=== PATIENT | male | born 1975 | race Caucasian/White ===

== ENCOUNTER 2019-03-02 09:45 | Inpatient (IN) ==
[~2019-03-02 09:45] MED LIST: HEPARIN/NACL 0.9% 2 UNITS/ML 1,000 ML IV ONE; LIDOCAINE 1%/EPI INJ 20 ML VIAL ONE; MIDAZOLAM 2 MG/2 ML VIAL ONE; fentaNYL 100 MCG/2 ML VIAL ONE
[2019-03-02] MEDS ORDERED: TIROFIBAN 5,000 MCG/100 ML PREMIX IV ONE (10:21)
[2019-03-02] MEDS ORDERED: HEPARIN 5,000 UNIT/1 ML VIAL ONE (10:21)
[2019-03-02] MEDS ORDERED: TICAGRELOR 90 MG TABLET ONE (10:26)
[2019-03-02] MEDS ORDERED: TIROFIBAN 5,000 MCG/100 ML PREMIX IV SCH (10:28)
[2019-03-02] MEDS ORDERED: ACETAMINOPHEN 325 MG TABLET PO PRN (11:03)
[2019-03-02] MEDS ORDERED: NITROGLYCERIN SL 0.4 MG TABLET SL PRN (11:03)
[2019-03-02] MEDS ORDERED: MORPHINE 4 MG/1 ML VIAL IV PRN (11:03)
[2019-03-02] MEDS ORDERED: ZALEPLON 5 MG CAPSULE PO PRN (11:03)
[2019-03-02] MEDS ORDERED: DEXTROSE 5% NACL 0.45% 1,000 ML IV SCH (11:30)
[2019-03-02] MEDS: TICAGRELOR 90 MG TABLET PO SCH (20:30)
[2019-03-02] MEDS: ATORVASTATIN 80 MG TABLET PO SCH (20:30)
[2019-03-02] MEDS: METOPROLOL TARTRATE 25 MG TABLET PO SCH (20:30)
[2019-03-03 04:01] LABS: Basophils # 0.1 10*3/uL (0.0-0.2); Basophils % 0.6 % (0.0-0.8); Eosinophils # 0.4 10*3/uL (0.0-0.87); Eosinophils % 3.9 % (0.00-10.9); Hematocrit 46.9 VOL% (42.0-52.0); Hemoglobin 15.9 GM/DL (14.0-18.0); Immature Granulocytes % 0.2 %; Immature Granulocytes Absolute 0.02 #; Lymphocytes # 1.8 10*3/uL (1.4-4.0); Lymphocytes % 19.7 % (21.2-54.2); Mean Corpuscular HGB Conc 33.9 GM/DL (32-36); Mean Platelet Volume 11.3 FL (9.6-12.0); Monocytes % 11.6 % (1.7-12.7); Platelet Count 194 T/CUMM (130-400); Red Blood Count 5.33 MC/CUMM (3.8-5.5); Red Cell Distribution Width 12.8 % (9.3-17.3)
[2019-03-03 04:08] LABS: Calcium 8.3 MG/DL (8.5-10.1); Osmolality,Calculated 277.5 MOS/KG (273-304)
[2019-03-03] MEDS: METOPROLOL TARTRATE 25 MG TABLET PO SCH ×2 (09:37→21:18)
[2019-03-03] MEDS: ASPIRIN EC 81 MG TABLET PO SCH (09:37)
[2019-03-03] MEDS: POTASSIUM CHLORIDE 20 MEQ TABLET PO PRN ×2 (09:37→12:40)
[2019-03-03] MEDS: TICAGRELOR 90 MG TABLET PO SCH ×2 (09:37→21:18)
[2019-03-03] MEDS: PANTOPRAZOLE 40 MG TABLET PO SCH (09:38)
[2019-03-03] MEDS: ATORVASTATIN 80 MG TABLET PO SCH (21:19)
[2019-03-04 07:37] VITALS: BP 132/85
[2019-03-04 08:40] LABS: Basophils % 0.4 % (0.0-0.8); Eosinophils # 0.3 10*3/uL (0.0-0.87); Eosinophils % 3.6 % (0.00-10.9); Hematocrit 50.7 VOL% (42.0-52.0); Hemoglobin 17.2 GM/DL (14.0-18.0); Immature Granulocytes % 0.3 %; Immature Granulocytes Absolute 0.03 #; Lymphocytes # 1.8 10*3/uL (1.4-4.0); Lymphocytes % 19.9 % (21.2-54.2); Mean Corpuscular HGB Conc 33.9 GM/DL (32-36); Mean Corpuscular Volume 89.4 FL (87-102); Mean Platelet Volume 11.1 FL (9.6-12.0); Neutrophils % 66.8 % (38.7-73.9); Platelet Count 196 T/CUMM (130-400); Red Blood Count 5.67 MC/CUMM (3.8-5.5); Red Cell Distribution Width 12.8 % (9.3-17.3)
[2019-03-04 08:50] LABS: Osmolality,Calculated 283.1 MOS/KG (273-304)
[2019-03-04] MEDS: TICAGRELOR 90 MG TABLET PO SCH (09:07)
[2019-03-04] MEDS: PANTOPRAZOLE 40 MG TABLET PO SCH (09:07)
[2019-03-04] MEDS: ASPIRIN EC 81 MG TABLET PO SCH (09:07)
[2019-03-04] MEDS: METOPROLOL TARTRATE 25 MG TABLET PO SCH (09:07)
== END 2019-03-04 11:10 | disposition home or self-care (01) | DRG 247 ==
LOC: N.SDSINP → N.CC 11:17 → N.TELEN 03-03 10:21
PROVIDERS: ADMIT Internal Medicine Interventional Cardiology; ATTEND Internal Medicine Interventional Cardiology
PROC: CLCCHCL (ICD-10-PCS; 2019-03-02 10:00)